=== PATIENT | male | born 1955 | race Caucasian/White ===

== ENCOUNTER 2020-04-12 12:23 | Emergency (ER) | payer MEDICARE, OTHER ==
[2020-04-12] MEDS ORDERED: Tamsulosin 0.4 MG Cap.ER PO ONE (14:05)
--- NOTE | 2020-04-12 14:10 | EDM.PDOC ---
ED HPI GENERAL MEDICAL PROBLEM - General Chief Complaint: Genitourinary Problem Stated Complaint: ILL Time Seen by Provider: 04/12/20 13:25 Source of Information: Reports: Patient History Limitations: Reports: No Limitations - History of Present Illness INITIAL COMMENTS - FREE TEXT/NARRATIVE: pt arrived stating that he was not able to void. He is very uncomforatable. He has been trying to void most of the nite and this is not successful Onset: Today, Sudden Duration: Hour(s): Location: Reports: Abdomen Associated Symptoms: Reports: No Other Symptoms Pelvic Pain Score (Numeric/FACES): 10 - Related Data Allergies Allergy/AdvReac Type Severity Reaction Status Date / Time No Known Allergies Allergy Verified 04/12/20 13:30 Home Meds: Home Meds Tamsulosin [Flomax] 0.4 mg PO DAILY 04/12/20 [History] Past Medical History Genitourinary History: Reports: BPH Musculoskeletal History: Reports: Fracture Neurological History: Reports: Neuropathy, Peripheral - Past Surgical History HEENT Surgical History: Reports: Eye Surgery, Other (See Below) Other HEENT Surgeries/Procedures: left eye cold laser surgery. Musculoskeletal Surgical History: Reports: Arthroscopic Knee Social & Family History - Tobacco Use Smoking Status *Q: Heavy Tobacco Smoker Years of Tobacco use: 49 Packs/Tins Daily: 2 - Caffeine Use Caffeine Use: Reports: Coffee - Alcohol Use Days Per Week of Alcohol Use: 7 Number of Drinks Per Day: 2 Total Drinks Per Week: 14 - Recreational Drug Use Recreational Drug Use: No ED ROS GENERAL - Review of Systems Review Of Systems: See Below Constitutional: Reports: No Symptoms HEENT: Reports: No Symptoms Endocrine: Reports: No Symptoms GI/Abdominal: Reports: Abdominal Pain, Other (pt has not been able to void, uncomfortable from a full bladder. ) : Reports: Urinary Retention Musculoskeletal: Reports: No Symptoms Skin: Reports: No Symptoms ED EXAM, RENAL/ - Physical Exam Exam: See Below Text/Narrative:: pt arrived uncomfortable from a full bladder. He has not been able to void all nite. Exam Limited By: No Limitations General Appearance: Alert, Anxious, Moderate Distress Ears: Normal TMs Nose: Normal Inspection Throat/Mouth: Normal Inspection Head: Atraumatic Neck: Normal Inspection Respiratory/Chest: No Respiratory Distress Cardiovascular: Regular Rate, Rhythm GI/Abdominal: Other ( tender in the lower abdoman. ) (Male) Exam: Deferred Rectal (Males) Exam: Deferred Back Exam: Normal Inspection Extremities: Normal Inspection Course - Vital Signs Last Recorded V/S: Last Vital Signs Temp 34.8 C L 04/12/20 13:22 Pulse 92 04/12/20 13:22 Resp 20 04/12/20 13:22 BP 183/94 H 04/12/20 13:22 Pulse Ox 96 04/12/20 13:22 - Orders/Labs/Meds Orders: Active Orders 24 hr Category Date Time Status Bladder Scan [RC] ASDIRECTED Care 04/12/20 12:27 Active Walsh Catheter Insertion [Insert Urinary Catheter] [OM. Care 04/12/20 12:30 Ordered PC] Q24H Urinary Catheter Assessment [RC] ASDIRECTED Care 04/12/20 12:28 Active Labs: Laboratory Tests 04/12/20 Range/Units 13:44 Urine Color Yellow (YELLOW) Urine Appearance Cloudy A (CLEAR) Urine pH 6.0 (5.0-8.0) Ur Specific [place] 1.025 (1.008-1.030) Urine Protein Negative (NEGATIVE) mg/dL Urine Glucose (UA) 100 H (NEGATIVE) mg/dL Urine Ketones Negative (NEGATIVE) mg/dL Urine Occult Blood Moderate H (NEGATIVE) Urine Nitrite Negative (NEGATIVE) Urine Bilirubin Negative (NEGATIVE) Urine Urobilinogen 0.2 (0.2-1.0) EU/dL Ur Leukocyte Esterase Negative (NEGATIVE) Urine RBC 50-75 H (0-5) Urine WBC Not seen (0-5) Ur Epithelial Cells Not seen Amorphous Sediment Not seen Urine Bacteria Not seen Urine Mucus Not seen Meds: Medications Discontinued Medications Generic Name Dose Route Start Last Admin Trade Name Freq PRN Reason Stop Dose Admin Tamsulosin HCl 0.4 mg 04/12/20 14:05 Flomax PO 04/12/20 14:06 ONETIME ONE - Re-Assessments/Exams Free Text/Narrative Re-Assessment/Exam: 04/12/20 14:16 pt was cathed and had 700-800 cc in his bladder. A urine was run which did not look infected. Departure - Departure Time of Disposition: 14:12 Disposition: Home, Self-Care 01 Condition: Fair Clinical Impression: Urinary retention - Discharge Information Referrals: PCP,None [Primary Care Provider] - Forms: ED Department Discharge Care Plan Goals: leave walsh cath in for 2 days, rtc sat am for removal, increase flomax to 2 tabs daily, put a leg bag on the pt, push fluids. Sepsis Event Note (ED) - Evaluation Sepsis Screening Result: No Definite Risk - Focused Exam Vital Signs: Vital Signs Temp Pulse Resp BP Pulse Ox 04/12/20 13:22 34.8 C L 92 20 183/94 H 96 - My Orders Last 24 Hours: My Active Orders 04/12/20 12:27 Bladder Scan [RC] ASDIRECTED 04/12/20 12:28 Urinary Catheter Assessment [RC] ASDIRECTED 04/12/20 12:30 Walsh Catheter Insertion [Insert Urinary Catheter] [OM.PC] Q24H - Assessment/Plan Last 24 Hours: My Active Orders 04/12/20 12:27 Bladder Scan [RC] ASDIRECTED 04/12/20 12:28 Urinary Catheter Assessment [RC] ASDIRECTED 04/12/20 12:30 Walsh Catheter Insertion [Insert Urinary Catheter] [OM.PC] Q24H
== END 2020-04-12 15:31 | disposition home or self-care (01) ==
LOC: JP.ED 12:23
DX: N40.1 Benign prostatic hyperplasia with lower urinary tract symptoms (principal); R33.8 Other retention of urine; F17.210 Nicotine dependence, cigarettes, uncomplicated; Z79.899 Other long term (current) drug therapy
CPT/HCPCS: 51702; 81001; 99283; A9270

== ENCOUNTER 2020-04-15 20:08 | Emergency (ER) | payer OTHER ==
[2020-04-15] MEDS ORDERED: Lidocaine 2% Jelly 10 ML Urojet MUCMEM ONE (21:01)
--- NOTE | 2020-04-15 21:06 | EDM.PDOC ---
ED HPI GENERAL MEDICAL PROBLEM - General Chief Complaint: Genitourinary Problem Stated Complaint: UNABLE TO URINATE Time Seen by Provider: 04/15/20 21:01 Source of Information: Reports: Patient History Limitations: Reports: No Limitations - History of Present Illness INITIAL COMMENTS - FREE TEXT/NARRATIVE: 64 yo male here with inability to void. Had his catheter removed this morning and now cannot void. No fever. Recently had his Flomax dose increased with the idea that he would be able to void after doing this. Onset: Today Duration: Hour(s): Location: Reports: Pelvis Quality: Reports: Pressure Severity: Severe Improves with: Reports: Other (catheter placement) Worsens with: Reports: Other (time) Context: Reports: Other (See HPI) Associated Symptoms: Denies: Fever/Chills, Nausea/Vomiting Treatments [employer]ER: Reports: Other (see below) (none) - Related Data Allergies Allergy/AdvReac Type Severity Reaction Status Date / Time No Known Allergies Allergy Verified 04/15/20 21:04 Home Meds: Home Meds Tamsulosin [Flomax] 0.4 mg PO DAILY 04/12/20 [History] Past Medical History Genitourinary History: Reports: BPH Musculoskeletal History: Reports: Fracture Neurological History: Reports: Neuropathy, Peripheral - Past Surgical History HEENT Surgical History: Reports: Eye Surgery, Other (See Below) Other HEENT Surgeries/Procedures: left eye cold laser surgery. Musculoskeletal Surgical History: Reports: Arthroscopic Knee Social & Family History - Caffeine Use Caffeine Use: Reports: Coffee ED ROS GENERAL - Review of Systems Review Of Systems: See Below Constitutional: Reports: No Symptoms : Reports: Pain (pelvic pressure) Musculoskeletal: Reports: No Symptoms Skin: Reports: No Symptoms Neurological: Reports: No Symptoms ED EXAM, RENAL/ - Physical Exam Exam: See Below Exam Limited By: No Limitations General Appearance: Alert, WD/WN, No Apparent Distress Eye Exam: Bilateral Eye: Normal Inspection Ears: Normal External Exam, Normal Canal, Hearing Grossly Normal Nose: Normal Inspection Throat/Mouth: Normal Lips, Normal Voice, No Airway Compromise Head: Atraumatic Neck: Normal Inspection Respiratory/Chest: No Respiratory Distress Cardiovascular: Regular Rate, Rhythm Extremities: Normal Inspection Neurological: Alert, Oriented, CN II-XII Intact, Normal Cognition, No Motor/Sensory Deficits Psychiatric: Normal Affect, Normal Mood Skin Exam: Warm, Dry, Intact, Normal Color, No Rash Course - Vital Signs Last Recorded V/S: Last Vital Signs Temp 36.9 C 04/15/20 21:06 Pulse 101 H 04/15/20 21:06 Resp 18 04/15/20 21:06 BP 199/94 H 04/15/20 21:06 Pulse Ox 94 L 04/15/20 21:06 - Orders/Labs/Meds Orders: Active Orders 24 hr Category Date Time Status Dominguez Catheter Insertion [Insert Urinary Catheter] [OM. Care 04/15/20 20:45 Ordered PC] Q24H Urinary Catheter Assessment [RC] ASDIRECTED Care 04/15/20 20:33 Active Labs: Laboratory Tests 04/15/20 Range/Units 21:29 Urine Color Yellow (YELLOW) Urine Appearance Clear (CLEAR) Urine pH 5.5 (5.0-8.0) Ur Specific [place] >= 1.030 (1.008-1.030) Urine Protein 30 H (NEGATIVE) mg/dL Urine Glucose (UA) Negative (NEGATIVE) mg/dL Urine Ketones 40 H (NEGATIVE) mg/dL Urine Occult Blood Large H (NEGATIVE) Urine Nitrite Negative (NEGATIVE) Urine Bilirubin Small H (NEGATIVE) Urine Urobilinogen 0.2 (0.2-1.0) EU/dL Ur Leukocyte Esterase Negative (NEGATIVE) Urine RBC 10-20 H (0-5) Urine WBC Not seen (0-5) Ur Epithelial Cells Not seen Urine Bacteria Not seen Meds: Medications Discontinued Medications Generic Name Dose Route Start Last Admin Trade Name Freq PRN Reason Stop Dose Admin Lidocaine HCl 10 ml 04/15/20 21:01 04/15/20 21:15 Xylocaine 2% Jelly MUCMEM 04/15/20 21:02 10 ml ONETIME ONE Administration - Re-Assessments/Exams Free Text/Narrative Re-Assessment/Exam: 04/15/20 21:56 Feeling much better after catheter placed. Departure - Departure Time of Disposition: 21:56 Disposition: Home, Self-Care 01 Condition: Good Clinical Impression: Urinary retention BPH (benign prostatic hyperplasia) Qualifiers: Lower urinary tract symptom presence: symptoms present Lower urinary tract symptom detail: urinary obstruction Qualified Code(s): N40.1 - Benign prostatic hyperplasia with lower urinary tract symptoms; N13.8 - Other obstructive and reflux uropathy - Discharge Information *PRESCRIPTION DRUG MONITORING PROGRAM REVIEWED*: No *COPY OF PRESCRIPTION DRUG MONITORING REPORT IN PATIENT YEFRI: No Referrals: PCP,None [Primary Care Provider] - Forms: ED Department Discharge Additional Instructions: Drink more fluids. Leave your catheter in place until you are able to see a urologist. Recheck right away if you get a fever. Sepsis Event Note (ED) - Focused Exam Vital Signs: Vital Signs Temp Pulse Resp BP Pulse Ox 04/15/20 21:06 36.9 C 101 H 18 199/94 H 94 L 04/15/20 20:35 36.9 C 101 H 18 199/94 H 94 L - My Orders Last 24 Hours: My Active Orders 04/15/20 20:33 Urinary Catheter Assessment [RC] ASDIRECTED 04/15/20 20:45 Dominguez Catheter Insertion [Insert Urinary Catheter] [OM.PC] Q24H - Assessment/Plan Last 24 Hours: My Active Orders 04/15/20 20:33 Urinary Catheter Assessment [RC] ASDIRECTED 04/15/20 20:45 Dominguez Catheter Insertion [Insert Urinary Catheter] [OM.PC] Q24H
== END 2020-04-15 22:14 | disposition home or self-care (01) ==
LOC: JP.ED 20:08
DX: N40.1 Benign prostatic hyperplasia with lower urinary tract symptoms (principal); R33.8 Other retention of urine; N13.8 Other obstructive and reflux uropathy
CPT/HCPCS: 51702; 81001; 99283; 99283-25